=== PATIENT | female | born 1995 | race African-American/Black ===

== ENCOUNTER → 2019-06-24 11:45 | Observation (INO) ==
[2019-06-23 17:27] LABS: Hematocrit 32.8 % (35.3-44.9); Hemoglobin 10.6 g/dL (11.5-15.4); Mean Corpuscular HGB Conc 32.3 g/dL (31.6-35.5); Mean Corpuscular Volume 95.9 fL (83.0-100.0); Mean Platelet Volume 10.2 fL (9.4-12.4); Platelet Count 198 K/mcL (140-400); Red Blood Count 3.42 M/mcL (3.82-4.97); Red Cell Distribution Width 12.3 % (11.5-14.5); White Blood Count 6.9 K/mcL (4.3-11.1)
[2019-06-23 17:38] LABS: Activated Partial Thrombo Time 24.8 Seconds (26.0-36.0)
[2019-06-23] MEDS: Ringers Solution, Lactated 1,000 ML IVC SCH (18:20)
[2019-06-24] MEDS: Ringers Solution, Lactated 1,000 ML IVC SCH ×2 (00:53→07:40)
[~2019-06-24 11:45] MED LIST: Acetaminophen 325 MG TABLET PO PRN; Ondansetron 4 MG/2 ML VIAL IVP PRN; Ringers Solution, Lactated 1,000 ML IVC ONE; Ringers Solution, Lactated 1,000 ML ONE; hydrOXYzine pamoate 25 MG CAPSULE PO PRN
== END | disposition home or self-care (01) ==
LOC: 1NENULAB
PROVIDERS: ADMIT Obstetrics & Gynecology; ATTEND Obstetrics & Gynecology

== ENCOUNTER 2019-09-06 00:12 | Inpatient (IN) ==
[~2019-09-06 00:12] MED LIST changes: +*HR* FentaNYL (PF) 100 MCG/2 ML VIAL IVP PRN; -Acetaminophen 325 MG TABLET PO PRN; +Famotidine 20 MG/2 ML VIAL IVP PRN; +Lidocaine 1% 20 ML MDV INFILT PRN; +Metoclopramide 10 MG/2 ML VIAL IVP PRN; +Naloxone 0.4 MG/ML INJ IVP PRN; -Ondansetron 4 MG/2 ML VIAL IVP PRN; +Penicillin G Potassium 5,000,000 UNIT in 0.9 % Sodium Chloride Mini Bag 100 ML IVPB ONE; -Ringers Solution, Lactated 1,000 ML IVC ONE; +Ringers Solution, Lactated 1,000 ML IVC SCH; -Ringers Solution, Lactated 1,000 ML ONE; -hydrOXYzine pamoate 25 MG CAPSULE PO PRN
[2019-09-06 00:17] LABS: Basophils % 0.2 %; Eosinophils % 0.3 %; Hematocrit 27.2 % (35.3-44.9); Hemoglobin 8.8 g/dL (11.5-15.4); Immature Granulocytes % 1.3 % (0-4); Lymphocytes # 2.1 K/mcL (0.6-4.6); Lymphocytes % 23.2 %; Mean Corpuscular HGB Conc 32.4 g/dL (31.6-35.5); Mean Corpuscular Hemoglobin 29.5 pg (28.0-33.3); Mean Corpuscular Volume 91.3 fL (83.0-100.0); Monocytes # 0.7 K/mcL (0.0-1.3); Monocytes % 7.6 %; Nucleated Red Blood Cells 0.2 /100 WBC (0); Platelet Count 217 K/mcL (140-400); Red Blood Count 2.98 M/mcL (3.82-4.97); Segmented Neutrophils % 67.4 %; White Blood Count 8.9 K/mcL (4.3-11.1)
[2019-09-06 00:24] LABS: Amphetamine Screen,Urine Negative ng/mL (Cutoff=1000); Barbiturate Screen,Urine Negative ng/mL (Cutoff=200); Benzodiazepines Screen,Urine Negative ng/mL (Cutoff=200); Cannabinoid Screen,Urine Negative ng/mL (Cutoff = 50); Cocaine Screen,Urine Negative ng/mL (Cutoff= 300); Opiate Screen,Urine Negative ng/mL (Cutoff=300); Phencyclidine Screen,Urine Negative ng/mL (Cutoff=25)
[2019-09-06] MEDS ORDERED: EPHEDrine 50 MG/ML VIAL IVP PRN ×2 (00:42→13:30)
[2019-09-06] MEDS ORDERED: Epidural Premix (fent/bupiv) 110 ML EP SCH ×2 (00:45→13:30)
[2019-09-06] MEDS ORDERED: Azithromycin 250 MG TABLET PO STA (01:50)
[2019-09-06] MEDS: Penicillin G Potassium 2,500,000 UNIT/105 ML MLS IVPB SCH ×3 (05:32→14:20)
[2019-09-06] MEDS ORDERED: miSOPROStoL 25 MCG TABLET PO PRN (08:58)
[2019-09-06] MEDS ORDERED: 0.9 % Sodium Chloride 1,000 ML ONE (11:15)
[2019-09-06] MEDS ORDERED: *HR* FentaNYL (PF) 100 MCG/2 ML VIAL EP ONE (13:30)
[2019-09-06] MEDS ORDERED: Ferumoxytol 510 MG in 0.9 % Sodium Chloride 100 ML IVPB ONE (14:08)
[2019-09-06] MEDS ORDERED: Oxytocin 20 units/ LR 1000 mL 20 UNIT/1,000 ML BAG IVC ONE (16:53)
[2019-09-06] MEDS ORDERED: Measles/Mumps/Rubella Vacc 0.5 ML VIAL SQ PRN (20:49)
[2019-09-06] MEDS ORDERED: Oxytocin 20 units/ LR 1000 mL 20 UNIT/1,000 ML BAG IVC SCH (20:49)
[2019-09-06] MEDS ORDERED: Benzocaine/Menthol 56 GM AEROSOL SPRAY TP PRN (20:49)
[2019-09-06] MEDS ORDERED: Lanolin 7 G OINT...G. TP PRN (20:49)
[2019-09-06] MEDS: Ibuprofen 600 MG TABLET PO SCH (21:23)
[2019-09-06] MEDS: Acetaminophen 325 MG TABLET PO SCH (21:25)
[2019-09-07] MEDS: Acetaminophen 325 MG TABLET PO SCH ×2 (05:04→15:23)
[2019-09-07] MEDS: Ibuprofen 600 MG TABLET PO SCH ×2 (05:04→15:23)
[2019-09-07 07:39] LABS: Basophils % 0.2 %; Eosinophils % 0.3 %; Hematocrit 24.4 % (35.3-44.9); Hemoglobin 8.1 g/dL (11.5-15.4); Immature Granulocytes % 0.6 % (0-4); Lymphocytes # 2.1 K/mcL (0.6-4.6); Mean Corpuscular HGB Conc 33.2 g/dL (31.6-35.5); Mean Corpuscular Hemoglobin 30.3 pg (28.0-33.3); Mean Corpuscular Volume 91.4 fL (83.0-100.0); Monocytes # 0.9 K/mcL (0.0-1.3); Monocytes % 8.9 %; Platelet Count 170 K/mcL (140-400); Red Blood Count 2.67 M/mcL (3.82-4.97); Red Cell Distribution Width 11.9 % (11.5-14.5); White Blood Count 10.1 K/mcL (4.3-11.1)
[2019-09-07] MEDS ORDERED: Prenatal Vit/FA 1 EACH TABLET PO SCH (08:00)
[2019-09-07 08:09] VITALS: BP 105/69
== END 2019-09-07 15:26 | disposition home or self-care (01) | DRG 560 ==
LOC: 1NENULAB → 1NENUOBS 19:39
PROVIDERS: ADMIT Obstetrics & Gynecology; ATTEND Obstetrics & Gynecology

== ENCOUNTER 2020-08-29 22:05 | Observation (INO) ==
[2020-08-29 23:52] LABS: Basophils % 0.1 %; Eosinophils # 0.1 K/mcL (0.0-0.6); Eosinophils % 0.5 %; Hematocrit 42.6 % (35.3-44.9); Hemoglobin 13.7 g/dL (11.5-15.4); Immature Granulocytes % 0.2 % (0-4); Lymphocytes # 0.7 K/mcL (0.6-4.6); Lymphocytes % 7.4 %; Mean Corpuscular HGB Conc 32.2 g/dL (31.6-35.5); Mean Corpuscular Hemoglobin 29.8 pg (28.0-33.3); Mean Corpuscular Volume 92.8 fL (83.0-100.0); Mean Platelet Volume 10.3 fL (9.4-12.4); Monocytes # 0.6 K/mcL (0.0-1.3); Monocytes % 6.3 %; Neutrophils # 8.1 K/mcL (1.6-8.9); Platelet Count 175 K/mcL (140-400); Red Blood Count 4.59 M/mcL (3.82-4.97); Red Cell Distribution Width 11.6 % (11.5-14.5); Segmented Neutrophils % 85.5 %; White Blood Count 9.5 K/mcL (4.3-11.1)
[2020-08-30 00:14] LABS: BUN/Creatinine Ratio 16 (6-26); Blood Urea Nitrogen 11 mg/dL (6-20); Calcium 9.7 mg/dL (8.6-10.3); Carbon Dioxide 29 mEq/L (23-29); Chloride 103 mEq/L (98-107); Glucose 133 mg/dL (70-105); Osmolality,Calculated 291 (280-300); Potassium 4.1 mEq/L (3.5-5.1); Sodium 140 mEq/L (136-145); eGFR For African Americans > 60 (> 60); eGFR For Non-African Americans > 60 (> 60)
[2020-08-30] MEDS ORDERED: Ondansetron 4 MG/2 ML VIAL IVP ONE ×2 (02:03→04:11)
[2020-08-30] MEDS ORDERED: 0.9 % Sodium Chloride 1,000 ML IVC ONE (02:35)
[2020-08-30 02:54] LABS: Alanine Aminotransferase 11 Units/L (7-52); Albumin 4.8 g/dL (3.5-5.7); Albumin/Globulin Ratio 1.7 (1.1-2.2); Alkaline Phosphatase 45 Units/L (34-104); Aspartate Amino Transferase 17 Units/L (13-39); Bilirubin,Indirect 0.4 mg/dL (0.0-1.0); Bilirubin,Total 0.4 mg/dL (0.3-1.0); Globulin 2.8 g/dL (2.4-3.5); Lipase 294 Units/L (11-82); Total Protein 7.6 g/dL (6.4-8.9)
[2020-08-30 03:32] LABS: Bacteria,Urine Few per hpf (None-Few); Bilirubin,Urine Negative (Negative); Blood,Urine Moderate (Negative); Clarity,Urine Clear (Clear); Color,Urine Light-Yellow (Yellow); Glucose,Urine (UA) Normal (Normal); Ketones,Urine Negative (Negative); Leukocyte Esterase,Urine Negative (Negative); Mucus,Urine Few per lpf (None-Few); Nitrite,Urine Negative (Negative); PH,Urine 5.5 pH Units (5.0-8.0); Protein,Urine Trace mg/dL (Neg-Trace); Specific Gravity,Urine 1.028 (1.010-1.025); Squamous Epithelial Cell,Urine Moderate per hpf (None-Few); Urobilinogen,Urine Normal (Normal); WBC,Urine 0-3 per hpf (0-3)
[2020-08-30] MEDS ORDERED: Isovue-370 500 ML BOTTLE IVP ONE (03:43)
[2020-08-30] MEDS ORDERED: Naloxone 0.4 MG/ML INJ IVP PRN (07:31)
[2020-08-30] MEDS ORDERED: Melatonin 3 MG TABLET PO PRN (07:31)
[2020-08-30] MEDS: 0.9 % Sodium Chloride 1,000 ML IVC SCH ×3 (08:39→18:37)
[2020-08-30 09:54] LABS: INR 1.1; Prothrombin Time 13.2 Seconds (9.4-12.1)
[2020-08-30 10:03] LABS: Chol/HDL Ratio 2.6 (0-4.9); Magnesium 1.6 mg/dL (1.6-2.6); Phosphorous 3.2 mg/dL (2.7-4.5)
[2020-08-30] MEDS: Ketorolac 30 MG/ML VIAL IVP PRN ×2 (11:01→18:37)
[2020-08-30] MEDS: Ondansetron 4 MG/2 ML VIAL IVP PRN (13:24)
[2020-08-31] MEDS: 0.9 % Sodium Chloride 1,000 ML IVC SCH (01:42)
[2020-08-31 06:12] LABS: Hemoglobin 9.7 g/dL (11.5-15.4); Immature Platelets 4.3 % (1.1-6.1); Mean Corpuscular HGB Conc 33.4 g/dL (31.6-35.5); Mean Corpuscular Hemoglobin 30.8 pg (28.0-33.3); Mean Corpuscular Volume 92.1 fL (83.0-100.0); Red Blood Count 3.15 M/mcL (3.82-4.97); Red Cell Distribution Width 11.8 % (11.5-14.5); White Blood Count 2.8 K/mcL (4.3-11.1)
[2020-08-31 06:30] LABS: Albumin/Globulin Ratio 1.6 (1.1-2.2); Bilirubin,Direct 0.1 mg/dL (0.0-0.2); Bilirubin,Indirect 0.3 mg/dL (0.0-1.0); Bilirubin,Total 0.4 mg/dL (0.3-1.0); Globulin 1.9 g/dL (2.4-3.5); Total Protein 4.9 g/dL (6.4-8.9)
[2020-08-31 06:31] LABS: BUN/Creatinine Ratio 13 (6-26); Blood Urea Nitrogen 9 mg/dL (6-20); Calcium 7.9 mg/dL (8.6-10.3); Carbon Dioxide 23 mEq/L (23-29); Chloride 111 mEq/L (98-107); Glucose 78 mg/dL (70-105); Magnesium 1.6 mg/dL (1.6-2.6); Osmolality,Calculated 286 (280-300); Phosphorous 2.6 mg/dL (2.7-4.5); Potassium 3.7 mEq/L (3.5-5.1); Sodium 139 mEq/L (136-145); eGFR For African Americans > 60 (> 60); eGFR For Non-African Americans > 60 (> 60)
[2020-08-31] MEDS: Ketorolac 30 MG/ML VIAL IVP PRN (10:10)
[2020-08-31] MEDS: Ondansetron 4 MG/2 ML VIAL IVP PRN (10:11)
[2020-08-31 11:40] VITALS: BP 112/67; PULSE 50; TEMP 98.1; O2SAT 100
== END 2020-08-31 12:17 | disposition home or self-care (01) ==
LOC: 3BNU 22:05 → EMEROOARM 22:05 → SUATTDRO 08-30 06:32 → 3BNU 08-30 08:07
PROVIDERS: ADMIT Internal Medicine; ATTEND Internal Medicine